=== PATIENT | male | born 1945 | race Caucasian/White ===

== ENCOUNTER 2019-08-03 17:29 | Emergency (ER) | payer OTHER ==
[2019-08-03] MEDS: LIDOCAINE 1% (MDV) 20 ML INJ SC ×2 (18:09→18:16)
== END 2019-08-03 19:41 | disposition home or self-care (01) ==
LOC: FTE 17:29
DX: L02.213 Cutaneous abscess of chest wall (principal)
CPT/HCPCS: 10061; 99283-25